=== PATIENT | female | born 1985 | race African-American/Black ===

== ENCOUNTER 2025-03-07 15:42 | Emergency (ER) | payer MEDICAID ==
[~2025-03-07] VITALS: Ht 172.7 cm; Wt 86.0 kg
[2025-03-07 15:44] VITALS: O2SAT 96
[2025-03-07 16:37] LABS: BASOPHILS % 0.2 % (0.0-2.0); EOSINOPHILS % 0.8 % (0.0-5.0); HEMATOCRIT. 34.4 % (36.0-48.0); HEMOGLOBIN. 11.2 g/dL (12.0-16.0); LYMPHOCYTES % 16.9 % (20.0-50.0); MEAN PLATELET VOLUME 8.5 fl (7.4-10.4); MONOCYTES % 10.3 % (2.0-8.0); NEUTROPHILS % 71.8 % (40.0-76.0); PLATELET 153 x1000/uL (130-400); RED BLOOD CELL COUNT 4.20 mill/uL (4.2-5.4); RED CELL DISTRIBUTION WIDTH 14.0 % (11.6-14.6)
[2025-03-07 16:52] LABS: CREATININE 1.1 mg/dL (0.6-1.0)
[2025-03-07 16:53] LABS: ETHANOL BLOOD < 10 mg/dL (<10); TROPONIN I HIGH SENSITIVITY < 4 ng/L (3.0-34); UREA NITROGEN BLOOD 7 mg/dL (9-23)
[2025-03-07 16:54] LABS: ASPARTATE AMINOTRANSFERASE 10 IU/L (<34)
[2025-03-07 16:55] LABS: BILIRUBIN DIRECT 0.2 mg/dL (<=3.0); BILIRUBIN TOTAL 0.6 mg/dL (0.1-1.0); INR 1.1; PROTEIN TOTAL 6.6 g/dL (6.0-8.3)
[2025-03-07 16:57] LABS: HCG SCREEN NEGATIVE
[2025-03-07 18:41] LABS: TROPONIN I HIGH SENSITIVITY < 4 ng/L (3.0-34)
[2025-03-07] MEDS ORDERED: HYDR50TA54 MT (19:48)
[2025-03-07 20:40] VITALS: BP 112/68; PULSE 84; RESP 14; TEMP 36.7; O2SAT 98
== END 2025-03-07 20:41 | disposition home or self-care (01) ==
LOC: ER 15:42 → CMPBEDREQ 03-08 07:43
DX: R55 Syncope and collapse (principal); F41.0 Panic disorder [episodic paroxysmal anxiety]; R42 Dizziness and giddiness; R53.1 Weakness; Z88.0 Allergy status to penicillin; Z79.899 Other long term (current) drug therapy
CPT/HCPCS: 36415; 71045; 80048; 80076; 80320; 83735; 84484; 84703; 85025; 93005; 99285; G0480